=== PATIENT | male | born 1930 | race Caucasian/White ===

== ENCOUNTER 2016-05-07 00:11 | Emergency (ER) | payer OTHER ==
[~2016-05-07] VITALS: Ht 167.6 cm; Wt 90.7 kg
[2016-05-07] MEDS ORDERED: SODIUM CHLORIDE 0.9% 1,000 ML IV ONE (07:08)
[2016-05-07 07:33] LABS: Basophils # (auto) 0 uL; Basophils % (auto) 0.2 % (0.0-2.0); DEFINITIVE VIEW TRANSMISSION; Eosinophils # (auto) 0 uL; Eosinophils % (auto) 0.4 % (0.0-7.0); Hematocrit 21.7 % (41.0-53.0); Hemoglobin 7.2 g/dL (13.5-17.5); Lymphocytes # (auto) 2.7 uL; Lymphocytes % (auto) 26.3 % (10.0-50.0); Mean Corpuscular Hemoglobin 31.7 pg (28.0-32.0); Mean Corpuscular Hgb Conc. 33.1 g/dL (32.0-36.0); Mean Corpuscular Volume 95.8 fL (80.0-100.0); Mean Platelet Volume 8.1 fL (7.4-10.4); Monocytes # (auto) 1.1 uL; Monocytes % (auto) 10.8 % (0.0-12.0); Neutrophils # (auto) 6.4 uL; Neutrophils % (auto) 62.3 % (37.0-80.0); Platelet Count (auto) 177 10^3/uL (140-450); Red Cell Distribution Width 14.3 % (11.6-16.0); White Blood Cell 10.2 10^3/uL (4.4-10.8)
[2016-05-07 07:49] LABS: Partial Thromboplastin Time 31.4 sec (22.64-33.71)
[2016-05-07 08:02] LABS: Albumin 2.3 g/dL (3.4-5.0); Bilirubin, Total 0.5 mg/dL (0.2-1.0); Calcium 7.6 mg/dL (8.5-10.1); Potassium 3.9 mmol/L (3.5-5.1)
[2016-05-07 08:20] LABS: B-Type Natriuretic Peptide 169.76 pg/mL (0-100); INR 2.66 (0.9-1.15); Prothrombin Time 27.4 sec (9.37-12.3); Temperature: 22.3 C (20.0-25.0)
[2016-05-07] MEDS ORDERED: cefTRIAXone 1GM/50ML D5W 50 ML IV ONE (09:30)
[2016-05-07] MEDS ORDERED: AZITHROMYCIN 250 MG TAB PO ONE (09:30)
[2016-05-07 13:45] VITALS: BP 96/67
[2016-05-07 13:50] VITALS: BP 91/58
[2016-05-07 14:00] VITALS: BP 98/60
[2016-05-07 14:15] LABS: Urine Bilirubin Negative (Negative); Urine Blood Negative /uL (Negative); Urine Color Yellow (Yellow); Urine Glucose Normal (Normal); Urine Ketone Negative (Negative); Urine Nitrite Negative (Negative); Urine RBC <1 /hpf (0 - 3); Urine Squamous Epithelial Cell FEW /hpf (<5); Urine Urobilinogen Normal (Negative)
[2016-05-07 14:30] VITALS: BP 122/66
[2016-05-07 14:55] VITALS: BP 102/60
[2016-05-07] MEDS ORDERED: diphenhdrAMINE HCL 50 MG/1 ML VL IV ONE (15:15)
[2016-05-07 16:11] VITALS: BP 131/61
== END 2016-05-07 08:40 | disposition short-term general hospital (02) ==
LOC: ER 00:11
DX: I48.91 Unspecified atrial fibrillation (principal); J18.9 Pneumonia, unspecified organism; I11.0 Hypertensive heart disease with heart failure; I50.9 Heart failure, unspecified; L03.116 Cellulitis of left lower limb; L03.115 Cellulitis of right lower limb; E78.5 Hyperlipidemia, unspecified; Z79.01 Long term (current) use of anticoagulants
CPT/HCPCS: 36415; 36430; 71010; 74176; 80053; 81001; 83880; 84484; 85025; 85610; 85730; 86850; 86900; 86901; 87040; 93005; 96361; 96365; 96375; 99285; J0696; J1200; J7040; P9016; 86922